=== PATIENT | female | born 1950 | race African-American/Black ===

== ENCOUNTER 2016-09-29 00:42 | Emergency (ER) | payer OTHER ==
[~2016-09-29] VITALS: Ht 168.9 cm; Wt 81.8 kg
[2016-09-29] MEDS ORDERED: FAMOTIDINE 20 MG INJ IV STA (00:45)
[2016-09-29] MEDS ORDERED: DIPHENHYDRAMINE 50 MG INJ IV STA (00:45)
[2016-09-29] MEDS ORDERED: EPINEPHrine 1 MG INJ IM STA (00:45)
[2016-09-29] MEDS ORDERED: IPRATROPIUM (NEB) 0.5 MG/2.5 ML AMP INH STA (00:45)
[2016-09-29] MEDS ORDERED: METHYLPREDNISOLONE 125 MG INJ IV STA (00:45)
[2016-09-29] MEDS ORDERED: ALBUTEROL 0.083% (NEB) 2.5 MG/3 ML AMP INH STA (00:45)
[2016-09-29 00:49] VITALS: Ht 168.9 cm; Wt 81.8 kg
[2016-09-29 01:23] LABS: ADD SCAN DIFF NO
[2016-09-29 01:24] LABS: ABNORMAL IP MESSAGE 1; HEMATOCRIT 35.6 % (37.0-47.0); HEMOGLOBIN 11.5 g/dl (12.0-16.0); MEAN CORPUSCULAR HEMOGLOBIN 27.8 pg (29.0-33.0); MEAN CORPUSCULAR HGB CONC 32.3 g/dl (32.0-37.0); MEAN CORPUSCULAR VOLUME 86.2 fl (82.0-101.0); MEAN PLATELET VOLUME 11.5 fl (7.4-10.4); PLATELET COUNT 181 10^3/UL (140-415); RED BLOOD COUNT 4.13 10^6/ul (4.20-5.40); RED CELL DISTRIBUTION WIDTH 15.9 % (11.5-14.5); WHITE BLOOD COUNT 9.2 10^3/ul (4.8-10.8)
[2016-09-29 01:33] LABS: INR 1.08; PT RATIO 1.1
[2016-09-29 01:34] LABS: PARTIAL THROMBOPLASTIN TIME 31.6 Sec (25.0-35.0)
--- NOTE | 2016-09-29 01:35 | ERD ---
ER Documentation Chief Complaint Date/Time DATE: 09/29/16 TIME: 01:34 Chief Complaint tongue swelling,allergic reaction HPI This is a 66-year-old female consequence of tongue swelling secondary to an unknown allergic reaction. Patient has had 4 episodes in the past 3 weeks. Patient was on amlodipine, but was taken off secondary to last allergic reaction. Patient gave herself an EpiPen prior to arrival. Mild tongue swelling but no difficulty breathing no difficulty swallowing per patient. ROS All systems reviewed and are negative except as per history of present illness. Allergies Allergies: Coded Allergies: Penicillins (Verified Allergy, Unknown, 09/29/16) acetaminophen (Verified Allergy, Unknown, 09/29/16) bupropion (Verified Allergy, Unknown, 09/29/16) ciprofloxacin (Verified Allergy, Unknown, 09/29/16) codeine (Verified Allergy, Unknown, 09/29/16) fluorescein (Verified Allergy, Unknown, 09/29/16) meperidine (Verified Allergy, Unknown, 09/29/16) oxycodone (Verified Allergy, Unknown, 09/29/16) tramadol (Verified Allergy, Unknown, 09/29/16) Uncoded Allergies: OPIATES (Allergy, Unknown, 09/29/16) PMhx/Soc History of Surgery: Yes (hysterectomy, c/s x2) Anesthesia Reaction: No Hx Neurological Disorder: No Hx Respiratory Disorders: No Hx Cardiac Disorders: Yes (HTN, high cholesterol) Hx Psychiatric Problems: No Hx Miscellaneous Medical Probl: Yes (uveitis, angioedema.) Hx Alcohol Use: No Hx Substance Use: No Hx Tobacco Use: No Smoking Status: Never smoker Physical Exam Vitals Vital Signs Date Time Temp Pulse Resp B/P Pulse Ox O2 Delivery O2 Flow Rate FiO2 09/29/16 01:28 106 26 150/76 100 Room Air 09/29/16 00:58 91 20 98 21 09/29/16 00:49 98.6 96 18 176/96 97 Physical Exam Const: [] Head: Atraumatic Eyes: Normal Conjunctiva ENT: Normal External Ears, Nose and Mouth. Neck: Full range of motion..~ No meningismus. Resp: Clear to auscultation bilaterally Cardio: Regular rate and rhythm, no murmurs Abd: Soft, non tender, non distended. Normal bowel sounds Skin: No petechiae or rashes Back: No midline or flank tenderness Ext: No cyanosis, or edema Neur: Awake and alert Psych: Normal Mood and Affect Result Diagram: 09/29/16 0105 Results 24 hrs Laboratory Tests Test 09/29/16 01:05 White Blood Count 9.210^3/ul Red Blood Count 4.1310^6/ul Hemoglobin 11.5g/dl Hematocrit 35.6% Mean Corpuscular Volume 86.2fl Mean Corpuscular Hemoglobin 27.8pg Mean Corpuscular Hemoglobin Concent 32.3g/dl Red Cell Distribution Width 15.9% Platelet Count 40812^3/UL Mean Platelet Volume 11.5fl Prothrombin Time 14.0Sec Prothrombin Time Ratio 1.1 INR International Normalized Ratio 1.08 Activated Partial Thromboplast Time Pending Current Medications Medications (Trade) Dose Ordered Sig/[place] Route PRN Reason Start Time Stop Time Status Last Admin Dose Admin Diphenhydramine HCl (Benadryl) 50 mg ONCE STAT IV 09/29/16 00:45 09/29/16 00:47 DC 09/29/16 01:10 Epinephrine (EPINEPHrine) 0.3 mg ONCE STAT IM 09/29/16 00:45 09/29/16 00:48 DC Famotidine (Pepcid Iv) 20 mg ONCE STAT IV 09/29/16 00:45 09/29/16 00:47 DC 09/29/16 01:10 Methylprednisolone Sodium Succinate (Solu-Medrol) 125 mg ONCE STAT IV 09/29/16 00:45 09/29/16 00:47 DC 09/29/16 01:10 Albuterol (Proventil 0.083% (Neb)) 5 mg ONCE STAT INH 09/29/16 00:45 09/29/16 00:47 DC 09/29/16 00:58 Ipratropium [place] (Atrovent 0.02% (Neb)) 0.5 mg ONCE STAT INH 09/29/16 00:45 09/29/16 00:47 DC 09/29/16 00:58 Procedures/MDM Medical decision-makin-year-old female with an acute allergic reaction with tongue swelling. Tongue swelling has resolved. She has been observed for 4 hours in the ER. She will be discharged home. Departure Diagnosis: Primary Impression: Allergic reaction Encounter type: initial encounter Qualified Code: T78.40XA - Allergic reaction, initial encounter Condition: Stable PASCUAL WILLAMS Sep 29, 2016 01:35
[2016-09-29 01:41] LABS: ALBUMIN 3.7 g/dl (3.3-4.9)
[2016-09-29] MEDS ORDERED: BEN50 PO (01:41)
[2016-09-29] MEDS ORDERED: EPIN0.3P4 INJ (01:41)
[2016-09-29] MEDS ORDERED: FAMO-18 PO (01:41)
[2016-09-29] MEDS ORDERED: PRED20TA PO (01:41)
[2016-09-29 01:43] LABS: CREATININE 0.71 mg/dl (0.44-1.00)
[2016-09-29 01:44] LABS: ALBUMIN/GLOBULIN RATIO 1.12; BILIRUBIN,INDIRECT 0.2 mg/dl (0-1.1); BILIRUBIN,TOTAL 0.2 mg/dl (0.2-1.3)
[2016-09-29 01:45] LABS: CALCIUM 9.2 mg/dl (8.4-10.2)
[2016-09-29 02:16] LABS: EOSINOPHILS # 0.4 10^3/ul (0.0-0.5); LYMPHOCYTES # 4.7 10^3/ul (0.8-2.9); MONOCYTE # 0.6 10^3/ul (0.3-0.9); NEUTROPHIL # 2.7 10^3/ul (1.6-7.5)
[2016-09-29 02:17] LABS: PLATELET ESTIMATE PLT APPEAR ADEQUATE
[2016-09-29 05:45] VITALS: BP 147/94; PULSE 80; RESP 22; TEMP 98.9
== END 2016-09-29 05:49 | disposition home or self-care (01) ==
LOC: E/R 00:42
DX: R60.0 Localized edema (principal); R40.2252 Coma scale, best verbal response, oriented, at arrival to emergency department; I10 Essential (primary) hypertension; R40.2142 Coma scale, eyes open, spontaneous, at arrival to emergency department; R40.2362 Coma scale, best motor response, obeys commands, at arrival to emergency department
CPT/HCPCS: 80053; 85025; 85610; 85730; 94664; J1200; J2930; 96374; 96375